=== PATIENT | male | born 1990 | race Caucasian/White ===

== ENCOUNTER 2016-12-20 11:44 | Emergency (ER) | payer OTHER ==
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
== END 2016-12-20 13:40 | disposition disaster alternative care site (69) ==
LOC: GACC 11:44
PROC: 0HQ1XZZ Repair Face Skin, External Approach (ICD-10-PCS; principal; 2016-12-20)
DX: S01.21XA Laceration without foreign body of nose, initial encounter (principal); F17.220 Nicotine dependence, chewing tobacco, uncomplicated; W22.8XXA Striking against or struck by other objects, initial encounter
CPT/HCPCS: A9270